=== PATIENT | male | born 1985 | race Caucasian/White ===

== ENCOUNTER 2017-11-29 22:53 | Emergency (ER) | payer OTHER | END 2017-11-30 03:48 | disposition home or self-care (01) | LOC: FTE 22:53 | DX: J20.9 Acute bronchitis, unspecified (principal) | CPT/HCPCS: 71045; 87206; 99284-25 ==

== ENCOUNTER 2017-11-30 23:35 | Emergency (ER) | payer OTHER | END 2017-12-01 03:21 | disposition home or self-care (01) | LOC: FTE 23:35 | DX: S00.03XA Contusion of scalp, initial encounter (principal); S16.1XXA Strain of muscle, fascia and tendon at neck level, initial encounter; S39.012A Strain of muscle, fascia and tendon of lower back, initial encounter; V89.2XXA Person injured in unspecified motor-vehicle accident, traffic, initial encounter | CPT/HCPCS: 70450; 99284-25 ==

== ENCOUNTER 2019-01-06 23:59 | Emergency (ER) | payer OTHER ==
[2019-01-07] MEDS: BACITRACIN 0.9 GM OINT TOP (05:55)
[2019-01-07] MEDS: DIPHTH/TET/ACEL PERTUSS (ADULT) 0.5 ML VIAL IM* (05:55)
== END 2019-01-07 06:25 | disposition home or self-care (01) ==
LOC: FTE 23:59
DX: S51.812A Laceration without foreign body of left forearm, initial encounter (principal); W26.8XXA Contact with other sharp object(s), not elsewhere classified, initial encounter; Y92.513 Shop (commercial) as the place of occurrence of the external cause
CPT/HCPCS: 12001; 90715; 99283-25